=== PATIENT | male | born 1945 | race Caucasian/White ===

== ENCOUNTER 2018-04-22 07:28 | Day surgery (SDC) | payer MEDICARE ==
[2018-04-17 13:13] VITALS: BP 122/80
[2018-04-17 13:18] LABS: BASOPHILS % (AUTO) 0.4 % (0.0-5.0); EOSINOPHILS % (AUTO) 3.7 % (0.0-8.0); HEMATOCRIT 39.2 % (42-54); LYMPHOCYTES % (AUTO) 15.6 % (21.0-51.0); MEAN CORPUSCULAR HEMOGLOBIN 30.9 pg (27.0-33.0); MEAN CORPUSCULAR HGB CONC 33.5 g/dL (32.0-36.0); MEAN CORPUSCULAR VOLUME 92.1 fL (79-99); MONOCYTES % (AUTO) 11.1 % (3.0-13.0); NEUTROPHILS % (AUTO) 69.2 % (40.0-77.0); PLATELET COUNT (AUTO) 193 K/uL (130-400); RED BLOOD CELL COUNT(AUTO) 4.25 MIL/uL (4.50-6.20); RED CELL DISTRIBUTION WIDTH 14.8 % (11.0-15.5); WHITE BLOOD COUNT (AUTO) 6.1 K/uL (4.8-10.8)
[2018-04-17 13:25] LABS: CREATININE 1.4 mg/dL (0.5-1.5); POTASSIUM 4.3 mmol/L (3.5-5.1)
[2018-04-17 13:35] LABS: INR 2.58 (0.85-1.15); PARTIAL THROMBOPLASTIN TIME 35.8 SEC (26.3-35.5); PROTHROMBIN TIME 26.6 SEC (9.6-11.6)
[~2018-04-22] VITALS: Ht 185.4 cm; Wt 100.9 kg
[2018-04-22] VITALS (8 sets, daily range): BP systolic 105–141; BP diastolic 61–87
[~2018-04-22 07:28] MED LIST: ASCO10007 PO; ASPI-555 PO; DRON400T2 PO; FOLI1TAB85 PO; FURO40TA5 PO; LEVO88TA7 PO; LOSA25TA21 PO; ROSU20TA30 PO; WARF5TAB8 PO
[2018-04-22] MEDS ORDERED: SODIUM CHLORIDE 0.9% 1000ML 1,000 ML IV SCH (08:00)
[2018-04-22] MEDS ORDERED: DIPH25 PO (09:39)
[2018-04-22] MEDS ORDERED: ASPI-988 PO (09:39)
[2018-04-22] MEDS ORDERED: ACET-66 PO (09:39)
[2018-04-22] MEDS ORDERED: CALC500T7 PO (09:39)
== END 2018-04-22 12:05 | disposition home or self-care (01) ==
LOC: DAH 07:28
PROVIDERS: ATTEND Internal Medicine Cardiovascular Disease
DX: I48.0 Paroxysmal atrial fibrillation (principal); Z79.899 Other long term (current) drug therapy; I25.10 Atherosclerotic heart disease of native coronary artery without angina pectoris; Z95.1 Presence of aortocoronary bypass graft; E78.5 Hyperlipidemia, unspecified; K21.9 Gastro-esophageal reflux disease without esophagitis; I12.9 Hypertensive chronic kidney disease with stage 1 through stage 4 chronic kidney disease, or unspecified chronic kidney disease; N18.3 Chronic kidney disease, stage 3 (moderate); G72.9 Myopathy, unspecified; Z68.29 Body mass index [BMI] 29.0-29.9, adult
CPT/HCPCS: 36415; 80048; 85025; 85610; 85730; 92960; 93005 ×2; 99152; A4606

== ENCOUNTER → 2019-09-02 | Outpatient (CLI) | payer MEDICARE ==
[~2019-09-02] MED LIST changes: +ACET-66 PO; +ASPI-988 PO; +CALC500T7 PO; +DIPH25 PO; -LOSA25TA21 PO; +LOSA25TA41 PO; -ROSU20TA30 PO; +ROSU20TA31 PO
== END | disposition home or self-care (01) ==
LOC: SHCH 13:19
PROVIDERS: ATTEND Internal Medicine Cardiovascular Disease
DX: I65.23 Occlusion and stenosis of bilateral carotid arteries (principal); R01.1 Cardiac murmur, unspecified
CPT/HCPCS: 93880

== ENCOUNTER → 2020-12-20 | Outpatient (CLI) | payer MEDICARE ==
[~2020-12-20] MED LIST changes: +ASCO100031 PO; -ASCO10007 PO; -ASPI-555 PO; +ASPI-556 PO
== END | disposition home or self-care (01) ==
LOC: SHCH 12:59
PROVIDERS: ATTEND Internal Medicine Cardiovascular Disease
DX: I65.23 Occlusion and stenosis of bilateral carotid arteries (principal); I34.0 Nonrheumatic mitral (valve) insufficiency; I10 Essential (primary) hypertension; I25.5 Ischemic cardiomyopathy
CPT/HCPCS: 93306; 93356; 93880

== ENCOUNTER → 2023-07-15 | Outpatient (CLI) | payer MEDICARE ==
[~2023-07-15] MED LIST changes: -ASPI-988 PO; +ASPI1TAB7 PO; +DIPH-1242 PO; -DIPH25 PO; -DRON400T2 PO; +DRON400T7 PO; +REGADENOSON 0.4 MG/5 ML PF SYG IVP ONE; -ROSU20TA31 PO; +ROSU20TA73 PO
== END | disposition home or self-care (01) ==
LOC: SHCH 07:51
PROVIDERS: ATTEND Internal Medicine Cardiovascular Disease
DX: I25.10 Atherosclerotic heart disease of native coronary artery without angina pectoris (principal); Z79.899 Other long term (current) drug therapy; Z95.1 Presence of aortocoronary bypass graft
CPT/HCPCS: 78452; 96374; 93017; J2785; A9500 ×2

== ENCOUNTER → 2023-08-22 | Outpatient (CLI) | payer MEDICARE ==
[~2023-08-22] MED LIST changes: -ACET-66 PO; +ACET650O3 PO; +AEC81 PO; +APIX2.5T PO; -ASPI-556 PO; -CALC500T7 PO; +CHOL100053 PO; +CYAN50009 PO; -DIPH-1242 PO; +DIPH25CA53 PO; +DOXA8TAB81 PO; -DRON400T7 PO; +DUTA0.5C37 PO; +FERS325 PO; -FOLI1TAB85 PO; +FURO20TA4 PO; -FURO40TA5 PO; +METO-391 PO; +NITR0.4T50 SL; -REGADENOSON 0.4 MG/5 ML PF SYG IVP ONE; +TADA5TAB13 PO; -WARF5TAB8 PO; +ZINC50TA64 PO
== END | disposition home or self-care (01) ==
LOC: SHCH 11:20
PROVIDERS: ATTEND Internal Medicine Cardiovascular Disease
DX: I65.23 Occlusion and stenosis of bilateral carotid arteries (principal); I25.5 Ischemic cardiomyopathy
CPT/HCPCS: 93880

== ENCOUNTER → 2024-02-24 | Outpatient (CLI) | payer MEDICARE ==
[~2024-02-24] VITALS: Ht 185.4 cm; Wt 89.9 kg
[~2024-02-24] MED LIST changes: +ACET-2521 PO; +ASPI-1190 PO; -ASPI1TAB7 PO; +TAMS-1 PO; +WARF5TAB8 PO; +furosemide PO
[2024-02-24 11:41] LABS: BASOPHILS # (AUTO) 0.01 K/uL (0.00-0.20); BASOPHILS % (AUTO) 0.1 % (0.0-5.0); EOSINOPHILS # (AUTO) 0.01 K/uL (0.00-0.70); EOSINOPHILS % (AUTO) 0.1 % (0.0-8.0); HEMATOCRIT 40.6 % (42-54); IMMATURE GRANULOCYTE ABSOLUTE 0.04 K/uL (0-1); LYMPHOCYTES # (AUTO) 0.7 K/uL (1.0-4.8); LYMPHOCYTES % (AUTO) 6.9 % (21.0-51.0); MEAN CORPUSCULAR HEMOGLOBIN 32.2 pg (27.0-33.0); MEAN CORPUSCULAR VOLUME 94.9 fL (79-99); MONOCYTES # (AUTO) 1.1 K/uL (0.1-1.0); MONOCYTES % (AUTO) 11.8 % (3.0-13.0); NEUTROPHILS # (AUTO) 7.6 K/uL (1.8-7.7); NEUTROPHILS % (AUTO) 80.7 % (40.0-77.0); PLATELET COUNT (AUTO) 200 K/uL (130-400); RED BLOOD CELL COUNT(AUTO) 4.28 MIL/uL (4.50-6.20); WHITE BLOOD COUNT (AUTO) 9.4 K/uL (4.8-10.8)
[2024-02-24 11:48] LABS: CREATININE 1.6 mg/dL (0.5-1.3); POTASSIUM 4.8 mmol/L (3.5-5.1)
[2024-02-24 12:00] LABS: PARTIAL THROMBOPLASTIN TIME 52.2 SEC (26.3-35.5)
[2024-02-24 12:25] LABS: INR 4.12 (0.85-1.15); PROTHROMBIN TIME 43.8 SEC (9.6-11.6)
[2024-02-24 12:54] VITALS: BP 160/82; PULSE 75; RESP 19
== END | disposition home or self-care (01) ==
LOC: DAH 10:00 → EDSTATUS 10:00
PROVIDERS: ATTEND Internal Medicine Cardiovascular Disease
DX: Z01.818 Encounter for other preprocedural examination (principal); I48.0 Paroxysmal atrial fibrillation; I25.5 Ischemic cardiomyopathy; I48.92 Unspecified atrial flutter; R94.31 Abnormal electrocardiogram [ECG] [EKG]; Z79.82 Long term (current) use of aspirin; Z79.01 Long term (current) use of anticoagulants; Z79.899 Other long term (current) drug therapy
CPT/HCPCS: 36415; 80048; 85025; 85610; 85730; 93005

== ENCOUNTER 2024-03-09 08:12 | Day surgery (SDC) | payer MEDICARE ==
[2024-03-09] VITALS (9 sets, daily range): BP systolic 133–161; BP diastolic 61–78; PULSE 50–63; RESP 16–18
[~2024-03-09 08:12] MED LIST changes: -ACET650O3 PO; -AEC81 PO; -APIX2.5T PO; -CHOL100053 PO; -CYAN50009 PO; -DOXA8TAB81 PO; -DUTA0.5C37 PO; -FERS325 PO; -FURO20TA4 PO; -NITR0.4T50 SL; -TADA5TAB13 PO
[2024-03-09 08:45] LABS: BASOPHILS # (AUTO) 0.03 K/uL (0.00-0.20); BASOPHILS % (AUTO) 0.4 % (0.0-5.0); EOSINOPHILS # (AUTO) 0.15 K/uL (0.00-0.70); EOSINOPHILS % (AUTO) 1.8 % (0.0-8.0); HEMATOCRIT 35.9 % (42-54); IMMATURE GRANULOCYTE ABSOLUTE 0.03 K/uL (0-1); LYMPHOCYTES # (AUTO) 0.7 K/uL (1.0-4.8); LYMPHOCYTES % (AUTO) 9.1 % (21.0-51.0); MEAN CORPUSCULAR HEMOGLOBIN 31.6 pg (27.0-33.0); MEAN CORPUSCULAR HGB CONC 33.1 g/dL (32.0-36.0); MEAN CORPUSCULAR VOLUME 95.2 fL (79-99); MONOCYTES # (AUTO) 0.7 K/uL (0.1-1.0); MONOCYTES % (AUTO) 8.7 % (3.0-13.0); NEUTROPHILS # (AUTO) 6.5 K/uL (1.8-7.7); NEUTROPHILS % (AUTO) 79.6 % (40.0-77.0); PLATELET COUNT (AUTO) 260 K/uL (130-400); RED BLOOD CELL COUNT(AUTO) 3.77 MIL/uL (4.50-6.20); RED CELL DISTRIBUTION WIDTH 12.8 % (11.0-15.5); WHITE BLOOD COUNT (AUTO) 8.2 K/uL (4.8-10.8)
[2024-03-09 08:54] LABS: CREATININE 1.2 mg/dL (0.5-1.3); POTASSIUM 4.4 mmol/L (3.5-5.1)
[2024-03-09 08:55] LABS: INR <= 0.93 (0.85-1.15); PROTHROMBIN TIME 10.9 SEC (9.6-11.6)
[2024-03-09 08:57] LABS: PARTIAL THROMBOPLASTIN TIME 24.5 SEC (26.3-35.5)
[2024-03-09] MEDS ORDERED: LIDOCAINE HCL 1% MDV 50ML VIAL ONE (10:35)
[2024-03-09] MEDS ORDERED: MIDAZOLAM HCL 1 MG/ML 2ML VIAL ONE ×2 (10:35→10:56)
[2024-03-09] MEDS ORDERED: MEPERIDINE-PF 25 MG/ML SYG ONE ×2 (10:35→10:56)
[2024-03-09] MEDS ORDERED: CEFAZOLIN SODIUM 1 GM VIAL ONE (10:36)
[2024-03-09] MEDS ORDERED: BUPIVACAINE/PF 0.25% 30ML VIAL IJ ONE (10:36)
[2024-03-09] MEDS: CEFAZOLIN SODIUM 1 GM VIAL IVPB ONE (15:25)
== END 2024-03-09 16:05 | disposition home or self-care (01) ==
LOC: DAH 08:12
PROVIDERS: ATTEND Internal Medicine Cardiovascular Disease
DX: Z45.02 Encounter for adjustment and management of automatic implantable cardiac defibrillator (principal); I25.5 Ischemic cardiomyopathy; I48.0 Paroxysmal atrial fibrillation; I47.20 Ventricular tachycardia, unspecified; I13.0 Hypertensive heart and chronic kidney disease with heart failure and stage 1 through stage 4 chronic kidney disease, or unspecified chronic kidney disease; N18.30 Chronic kidney disease, stage 3 unspecified; I50.42 Chronic combined systolic (congestive) and diastolic (congestive) heart failure; E78.5 Hyperlipidemia, unspecified; K21.9 Gastro-esophageal reflux disease without esophagitis; E03.9 Hypothyroidism, unspecified; Z79.899 Other long term (current) drug therapy; Z95.5 Presence of coronary angioplasty implant and graft; Z98.890 Other specified postprocedural states
CPT/HCPCS: 33264; 80048; 85025; 85610; 85730; 36415; C1882; J0690 ×2; J0665; J2250 ×2; J2175 ×2; J3490; A4215; A4222; A4221; A4663; A4216; A4606; A4223 ×3; 99156; 99157

== ENCOUNTER 2025-09-13 19:38 | Inpatient (IN) | payer MEDICARE ==
[~2025-09-13] VITALS: Ht 188 cm; Wt 84.0 kg
[~2025-09-13 19:38] MED LIST changes: -ASCO100031 PO; +ASCO10004 PO; -ROSU20TA73 PO; +ROSU20TA98 PO; -TAMS-1 PO; +TAMS-55 PO
--- NOTE | 2025-09-13 19:57 | NUR ---
PT CARE ASSUMED AT THIS TIME
[2025-09-13 20:14] LABS: IMMATURE GRANULOCYTE ABSOLUTE 0.03 K/uL (0-1); NUCLEATED RED BLOOD CELLS 0.0 % (0.0-0.19); PLATELET COUNT (AUTO) 254 K/uL (130-400); RED BLOOD CELL COUNT(AUTO) 4.20 MIL/uL (4.50-6.20); RED CELL DISTRIBUTION WIDTH 16.1 % (11.0-15.5); WHITE BLOOD COUNT (AUTO) 5.9 K/uL (4.8-10.8)
[2025-09-13 20:22] LABS: CREATININE 1.8 mg/dL (0.5-1.3); GLOMERULAR FILTR. RATE CALC 38.0 mL/min (>90); GLUCOSE,RANDOM 92.0 mg/dL (70-105); SODIUM SERUM 143.0 mmol/L (136-145); UREA NITROGEN, BLOOD 25.0 mg/dL (7-18)
--- NOTE | 2025-09-13 20:24 | ERN ---
General Chief Complaint: Weakness Stated Complaint: C/O WEAKNESS WITH SOB Time Seen by MD: 19:40 History of Present Illness Initial Comments 80-year-old male with a past medical history of bladder cancer treated with chemotherapy and radiation that ended about a year ago. Since then family has noticed that the patient has had increasing weakness shortness of breath and his sleeping being interrupted with shortness of breath. In addition he has swollen ankles despite taking diuretics. Patient has a history of CABG. Allergies: Coded Allergies: No Known Drug Allergies (Unverified Allergy, Unknown, 01/10/16) Home Meds Reported Medications Acetaminophen (Arthritis Pain Relief) 650 Mg Tablet.er, 650 MG PO AD PRN for PAIN, TAB 02/24/24 Aspirin/Acetaminophen/Caffeine (Excedrin Extra Strength Caplet) 250 Mg-250 Mg-65 Mg Tablet, 1 EACH PO AM, TAB 02/24/24 Tamsulosin HCl (Flomax) 0.4 Mg Cap.er.24h, 0.8 MG PO HS, CAPSULE. 02/24/24 [furosemide] No Conflict Check, 10 MG PO AM 02/24/24 Warfarin Sodium (Jantoven) 5 Mg Tablet, 5 MG PO HS, TAB 02/24/24 Levothyroxine Sodium (Levothyroxine Sodium) 88 Mcg Tablet, 88 MCG PO HS, TAB 08/21/23 Rosuvastatin Calcium (Rosuvastatin Calcium) 20 Mg Tablet, 20 MG PO HS, TAB 08/21/23 Ascorbic Acid (Vitamin C) 1,000 Mg Tablet, 1000 MG PO DAILY, TAB 08/21/23 Zinc Amino Acid Chelate (Zinc) 50 Mg Tablet, 50 MG PO QODAY, TAB TUE/EZRA/SAT/SUN 08/21/23 Diphenhydramine HCl (Diphenhydramine HCl) 25 Mg Capsule, 25 MG PO AD PRN for antihystermmine, CAP 08/21/23 Metoprolol Succinate (Metoprolol Succinate) 50 Mg Tab.er.24h, 50 MG PO HS, TAB 08/21/23 Losartan Potassium (Losartan Potassium) 25 Mg Tablet, 12.5 MG PO HS, TAB 08/21/23 Past Medical History Past Medical History: High Cholesterol, Hypertension, Hypothyroid, Other Medical History Other: VERTIGO; HX OF INCONTINENCE Past Surgical History: Pacer/AICD, Other Surgical History Other: OPEN HEART SX (1990) Constitutional: (-) chills, (-) diaphoresis, (-) fever, (-) malaise, (-) weakness, (-) other documentation EENTM: (-) eye pain, (-) blurred vision, (-) tearing, (-) double vision, (-) ear pain, (-) ear discharge, (-) nose pain, (-) nose congestion, (-) throat pain, (-) Throat swelling, (-) mouth pain, (-) tooth pain, (-) mouth swelling, (-) other documentation Respiratory: (+) orthopnea Cardiovascular: (+) edema Gastrointestinal/Abdominal: (-) nausea, (-) vomiting, (-) diarrhea, (-) abdominal pain, (-) abdominal distention, (-) constipation, (-) rectal bleeding, (-) dark stool/melena, (-) other documentation Genitourinary: (-) penile discharge, (-) dysuria, (-) frequency, (-) hematuria, (-) pain, (-) other documentation Musculoskeletal: (-) Neck pain, (-) back pain, (-) Flank Pain, (-) joint pain, (-) joint swelling, (-) muscle pain, (-) muscle stiffness, (-) gout, (-) other documentation Physical Exam General Appearance: (+) mild distress Orientation: (+) alert Head/Face Trauma: No Eye: bilateral eye normal inspection, bilateral eye PERRL, bilateral eye EOMI Ear, Nose, Throat: (+) hearing grossly normal, (+) normal ENT inspection, (+) moist mucous membraine Neck: (+) normal inspection, (+) supple, (+) full range of motion Respiratory: (+) chest non-tender, (+) lungs clear, (+) decreased breath sounds Heart: (+) regular, (+) no gallop Vascular: (+) edema Gastrointestinal: (+) soft, (+) non-tender, (+) bowel sound present Results Laboratory and Microbiology Lab and Micro Result Laboratory Tests Test 09/13/25 20:07 09/13/25 21:00 White Blood Count 5.9 K/uL (4.8-10.8) Red Blood Count 4.20 MIL/uL (4.50-6.20) L Hemoglobin 13.0 g/dL (14.0-18.0) L Hematocrit 38.6 % (42-54) L Mean Corpuscular Volume 91.9 fL (79-99) Mean Corpuscular Hemoglobin 31.0 pg (27.0-33.0) Mean Corpuscular Hemoglobin Concent 33.7 g/dL (32.0-36.0) Red Cell Distribution Width 16.1 % (11.0-15.5) H Platelet Count 254 K/uL (130-400) Mean Platelet Volume 8.9 fL (7.5-10.5) Immature Granulocyte % (Auto) 0.5 % (0-1) Neutrophils (%) (Auto) 78.4 % (40.0-77.0) H Lymphocytes (%) (Auto) 9.1 % (21.0-51.0) L Monocytes (%) (Auto) 10.6 % (3.0-13.0) Eosinophils (%) (Auto) 1.2 % (0.0-8.0) Basophils (%) (Auto) 0.2 % (0.0-5.0) Neutrophils # (Auto) 4.6 K/uL (1.8-7.7) Lymphocytes # (Auto) 0.5 K/uL (1.0-4.8) L Monocytes # (Auto) 0.6 K/uL (0.1-1.0) Eosinophils # (Auto) 0.07 K/uL (0.00-0.70) Basophils # (Auto) 0.01 K/uL (0.00-0.20) Absolute Immature Granulocyte (auto 0.03 K/uL (0-1) Nucleated Red Blood Cells 0.0 % (0.0-0.19) White Cell Morphology Comment See comments Sodium Level 143 mmol/L (136-145) Potassium Level 4.1 mmol/L (3.5-5.1) Chloride Level 104 mmol/L (101-111) Carbon Dioxide Level 29 mmol/L (21-32) Blood Urea Nitrogen 25 mg/dL (7-18) H Creatinine 1.8 mg/dL (0.5-1.3) H Glomerular Filtration Rate Calc 38 mL/min (>90) Random Glucose 92 mg/dL (70-105) Total Calcium 9.0 mg/dL (8.5-10.1) Total Bilirubin 1.2 mg/dL (0.2-1.0) H Aspartate Amino Transf (AST/SGOT) 63 U/L (10-37) H Alanine Aminotransferase (ALT/SGPT) 67 U/L (12-78) Alkaline Phosphatase 114 U/L (50-136) Troponin I High Sensitivity 30 ng/L (4-75) B-Type Natriuretic Peptide 931 pg/mL (0-100) H Total Protein 5.9 g/dL (6.0-8.3) L Albumin 3.4 g/dL (3.5-5.0) L Urine Color COLORLESS (YELLOW) Urine Appearance CLOUDY (CLEAR) H Urine pH 5.5 (5.0-8.0) Urine Specific [place] 1.007 (1.001-1.031) Urine Protein NEGATIVE mg/dL (NEGATIVE) Urine Glucose (UA) NEGATIVE mg/dL (NEGATIVE) Urine Ketones NEGATIVE mg/dL (NEGATIVE) Urine Occult Blood NEGATIVE (NEGATIVE) Urine Nitrate NEGATIVE (NEGATIVE) Urine Bilirubin NEGATIVE mg/dL (NEGATIVE) Urine Urobilinogen 0.2 mg/dL (0.2-1.0) Urine Leukocyte Esterase NEGATIVE Nany/uL Urine RBC 0-1 /HPF (0-1) Urine WBC 0-1 /HPF (0-1) Urine Bacteria None /HPF (None Seen) Labs Reviewed?: Yes EKG/XRAY/US/CT/MRI EKG: (+) rhythm (Ventricularly paced), (+) LVH Ultrasound Comment Patient's IVC measured and it is extremely pump greater than 3 cm. MDM MDM: Differential diagnosis: CHF, AMI, cardiotoxicity from radiation and chemotherapy, dehydration, Rationale: Tests considered and ordered secondary to shared decision making include: Previous outside records reviewed: Old ER visits. Risk of complication and/or morbidity or mortality of patient management: None Medications-Per medication reconciliation Need for hospitalization: Patient does meet criteria for hospitalization. Need for emergency major/minor surgery: No There are no social concerns with this patient. Prescription drug management Prescriptions will include symptomatic care Patient's prior external medical records from other ER visits were reviewed by me as indicated. Prior testing and results from previous visits were reviewed. Prior tests were taken into account with medical decision making and resource utilization, independent historian/historians were used to obtain complete medical history. I independently interpreted the test that were performed, results were reviewed by me and considered findings on radiology if ordered. Patient's chest x-ray shows a little effusion his BNP is elevated and he also shows some signs of kidney injury. I have given him a mg of Bumex. I have called the hospitalist service and they have agreed to admit him. ED Course Orders Procedure Category Date Status Time 12 Lead Ekg Tracing- EKG 09/13/25 Complete Technical 19:53 B-Type Natriuretic LAB 09/13/25 Complete Peptide 19:53 Cbc With Differential LAB 09/13/25 Complete 19:53 Comprehensive LAB 09/13/25 Complete Metabolic Panel 19:53 Troponin I High LAB 09/13/25 Complete Sensitivity 19:53 Urinalysis Profile LAB 09/13/25 Complete 19:53 Chest 1vw RAD 09/13/25 Resulted 19:53 Bumetanide 1mg/4ml PHA 09/13/25 Complete Vial (Bumex 1mg Vial) 21:00 Ct Head/Brain W/O CT 09/13/25 Taken Contrast 21:02 Current Medications Medications (Trade) Dose Ordered Sig/Lacy Route PRN Reason Start Time Stop Time Status Last Admin Dose Admin Bumetanide (Bumex 1mg Vial) 1 mg ONCE ONCE IVP 09/13/25 21:00 09/13/25 21:01 DC 09/13/25 22:09 Vital Signs Date Time Temp Pulse Resp B/P (MAP) Pulse Ox O2 Delivery O2 Flow Rate FiO2 09/13/25 20:09 96.6 61 17 147/94 98 Room Air* 0 21 09/13/25 19:40 96.6 68 20 141/91 96 Room Air DX & DISP Disposition: Inpatient Departure Impression: Primary Impression: CHF (congestive heart failure) Condition: Stable Referrals: TATO ERICKSON MD (PCP) SU MATHIAS MD Sep 13, 2025 20:24
[2025-09-13 20:33] LABS: ASPARTATE AMINOTRANSFERASE 63.0 U/L (10-37); TOTAL PROTEIN, SERUM 5.9 g/dL (6.0-8.3)
--- NOTE | 2025-09-13 20:47 | EKG ---
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
[2025-09-13 21:07] LABS: APPEARANCE,URINE CLOUDY (CLEAR); GLUCOSE, URINE (UA) NEGATIVE (NEGATIVE); LEUKOCYTE ESTERASE ,URINE NEGATIVE Leu/uL (NEGATIVE); NITRATE,URINE NEGATIVE (NEGATIVE); OCCULT BLOOD,URINE NEGATIVE (NEGATIVE)
[2025-09-13 21:09] LABS: ADD UA MICROSCOPIC YES
[2025-09-13] MEDS: BUMETANIDE 1MG/4ML VIAL IVP ONE (22:09)
--- NOTE | 2025-09-13 22:13 | HMCIMG ---
EXAM: CR Chest, 1 view CLINICAL HISTORY: Shortness of breath. COMPARISON: None provided. FINDINGS: Mildly blunted bilateral CP angles, concerning for small pleural effusion or pleural thickening. Mild bibasilar atelectasis. Mild cardiomegaly. Status poststernotomy. Right side cardiac pacemaker device in place. No pneumothorax. No acute osseous abnormality. IMPRESSION: Mildly blunted bilateral CP angles, concerning for small pleural effusion or pleural thickening. Mild bibasilar atelectasis. Mild cardiomegaly. Status poststernotomy. Right side cardiac pacemaker device in place. /[place]
--- NOTE | 2025-09-13 22:40 | HP ---
[facility] HISTORY [facility] PHYSICAL Date of Service: Sep 13, 2025 Time of Service: 22:40 PCP: John Rogel HISTORY OF PRESENT ILLNESS: This is a 80-year-old past medical history of prostate cancer with chemotherapy and radiation, hyperlipidemia, hypertension, hypothyroidism, CHF/ PPM, coronary artery disease with cardiac stent x1 and CABG x4 who presented to the ED for complaints of shortness of breath,generalized body weakness,dizziness ,increased confusion and edema to both lower extremities which started x 2 days.As per son patient has not been able to sleep for about 2 nights due to shortness of breath and he noticed he started getting weaker and throughout the day he has on and off confusion so they decided to bring him tot he eD for evaluation. Seen and examined patient in the ER awake,alert and oriented x 3 with occasional forgetfulness and patient ambulates with assistance. Patient denies fever, cough, nausea, vomiting, chest pain, palpitation and abdominal pain. Latest vital signs temperature 97.3, heart rate 64, blood pressure 154/74 saturation 95% on room air. Labs: Hemoglobin 13, hematocrit 38, platelet count 254. BUN 25, creatinine 1.8, GFR 38, total bili 1.2, AST 63 troponin 30 BNP 931 albumin 3.4 chest x-ray result revealed mildly blunted bilateral costophrenic angles concerning for small pleural effusion or pleural thickening. Mild bibasilar atelectasis. Mild cardiomegaly. Status post sternotomy. Right-sided cardiac pacemaker device in place. CT head without contrast result revealed no acute in tracranial abnormality is present. If the clinical concern persists recommend MRI of the brain, including DWI for further evaluation. Diffuse cerebral atrophy with chronic small-vessel ischemic changes. Focal gliosis in the right occipital lobe may correlate with prior ischemic or post inflammatory insult. Mild mucosal disease in the bilateral maxillary sinuses. While in the ER patient received Bumex 1 mg IV. We will admit patient for further medical management. REVIEW OF SYSTEMS CONSTITUTIONAL: Denies fevers, chills, or night sweats. No unintentional weight loss reported. NEUROLOGICAL: Complaints of weakness, dizziness and confusion Denies headache, amaurosis fugax, sensory deficit, gait abnormalities, or tremors. ENT: No hearing loss, otalgia, otorrhea, rhinitis, rhinorrhea, hoarseness, or sore throat. CARDIOVASCULAR: Denies any exertional angina, dyspnea on exertion, orthopnea, p aroxysmal nocturnal dyspnea, palpitations, life-threatening arrhythmias, claudication. PULMONARY: Complains of shortness of breaths Denies cough, phlegm/sputum, hemoptysis, pleuritic chest pain. SLEEP: Denies morning headaches, daytime somnolence or napping. Denies difficulty falling asleep, staying asleep, waking from sleep. Denies knowledge of snoring. GASTROINTESTINAL: Denies any type of dysphagia to either liquids or solids. Denies nausea, vomiting, pyrosis, early satiety, abdominal pain, diarrhea, constipation, or changes in stool consistency or caliber. Denies coffee-ground emesis, hematemesis, hematochezia, or melanotic stools. GENITOURINARY: Denies frequency, urgency, nocturia, hematuria or incontinence (Storage/Irritative symptoms.) Low urinary stream, straining to void, urinary intermittency or hesitancy, splitting of the voiding stream, terminal dribbling. ENDOCRINOLOGIC: Denies polyuria, polydipsia, polyphagia or heat/cold intolerances. HEMATOLOGIC: Denies thrombophilia/previous clots, or coagulopathy/bleeding disorders. ONCOLOGIC: Denies personal history of malignancy. DERMATOLOGIC: Denies rashes or pruritus. PSYCHIATRIC: Denies any suicidal or homicidal ideation. Denies hallucinations. PAST MEDICAL HISTORY: [ prostate cancer with chemotherapy and radiation, hyperlipidemia, hypertension, hypothyroidism, CHF/ PPM, coronary artery disease with cardiac stent x1 and CABG x4 ] PAST SURGICAL HISTORY: [ CABG x4, cardiac stent x1 ppm, bilateral knee repair [id number] bilateral shoulder repair secondary to rotator cuff ] PAST SOCIAL HISTORY: [ Patient lives with . Patient denies cigarette and recreational drug use admits to social drink one glass of wine a/month ] FAMILY HISTORY: [ Alzheimer's disease, cardiovascular disease, hypertension and Chronic obstructive pulmonary disease ] Coded Allergies: No Known Drug Allergies (Unverified Allergy, Unknown, 01/10/16) PHYSICAL EXAM GENERAL APPEARANCE: The patient is awake, alert, and oriented, in no acute cardiopulmonary distress. NEUROLOGICAL: Cranial nerves II-XII grossly intact. Motor is 5/5 in bilateral upper and lower extremities proximal to distal. No sensory deficits. HEENT: Face is symmetric. Pupils are equal and reactive. Extraocular movements are intact. NECK: Supple. No JVD. No thyromegaly. No submental, submandibular, pre- /postauricular, occipital or supraclavicular lymphadenopathy. CHEST: Normal chest expansion. No Telemetry. LUNGS: Absence of any rales, rhonchi or any wheezing. CARDIOVASCULAR: Regular. S1 and S2 normal. No appreciable rubs, murmurs or gallops. ABDOMEN: Soft, nontender, and nondistended. There is no rebound, voluntary guarding, or rigidity. : Deferred. No [place]agher. EXTREMITIES: +edema to bilateral lower extremities No clubbing. Good capillary refill. SKIN: No skin breakdown. Vital Sign (Last 24 Hours) 09/13/25 20:09 Temp 96.6 Pulse 61 Resp 17 B/P (MAP) 147/94 Pulse Ox 98 O2 Delivery Room Air* O2 Flow Rate 0 FiO2 21 LABS: Laboratory: Test 09/13/25 21:00 09/13/25 20:07 Range/Units Urine Color COLORLESS YELLOW Urine Appearance CLOUDY H CLEAR Urine pH 5.5 5.0-8.0 Urine Specific [place] 1.007 1.001-1.031 Urine Protein NEGATIVE NEGATIVE mg/dL Urine Glucose (UA) NEGATIVE NEGATIVE mg/dL Urine Ketones NEGATIVE NEGATIVE mg/dL Urine Occult Blood NEGATIVE NEGATIVE Urine Nitrate NEGATIVE NEGATIVE Urine Bilirubin NEGATIVE NEGATIVE mg/dL Urine Urobilinogen 0.2 0.2-1.0 mg/dL Urine Leukocyte Esterase NEGATIVE NEGATIVE Nany/uL Urine RBC 0-1 0-1 /HPF Urine WBC 0-1 0-1 /HPF Urine Bacteria None None Seen /HPF White Blood Count 5.9 4.8-10.8 K/uL Red Blood Count 4.20 L 4.50-6.20 MIL/uL Hemoglobin 13.0 L 14.0-18.0 g/dL Hematocrit 38.6 L 42-54 % Mean Corpuscular Volume 91.9 79-99 fL Mean Corpuscular Hemoglobin 31.0 27.0-33.0 pg Mean Corpuscular Hemoglobin Concent 33.7 32.0-36.0 g/dL Red Cell Distribution Width 16.1 H 11.0-15.5 % Platelet Count 254 130-400 K/uL Mean Platelet Volume 8.9 7.5-10.5 fL Immature Granulocyte % (Auto) 0.5 0-1 % Neutrophils (%) (Auto) 78.4 H 40.0-77.0 % Lymphocytes (%) (Auto) 9.1 L 21.0-51.0 % Monocytes (%) (Auto) 10.6 3.0-13.0 % Eosinophils (%) (Auto) 1.2 0.0-8.0 % Basophils (%) (Auto) 0.2 0.0-5.0 % Neutrophils # (Auto) 4.6 1.8-7.7 K/uL Lymphocytes # (Auto) 0.5 L 1.0-4.8 K/uL Monocytes # (Auto) 0.6 0.1-1.0 K/uL Eosinophils # (Auto) 0.07 0.00-0.70 K/uL Basophils # (Auto) 0.01 0.00-0.20 K/uL Absolute Immature Granulocyte (auto 0.03 0-1 K/uL Nucleated Red Blood Cells 0.0 0.0-0.19 % White Cell Morphology Comment See comments Sodium Level 143 136-145 mmol/L Potassium Level 4.1 3.5-5.1 mmol/L Chloride Level 104 101-111 mmol/L Carbon Dioxide Level 29 21-32 mmol/L Blood Urea Nitrogen 25 H 7-18 mg/dL Creatinine 1.8 H 0.5-1.3 mg/dL Glomerular Filtration Rate Calc 38 >90 mL/min Random Glucose 92 70-105 mg/dL Total Calcium 9.0 8.5-10.1 mg/dL Total Bilirubin 1.2 H 0.2-1.0 mg/dL Aspartate Amino Transf (AST/SGOT) 63 H 10-37 U/L Alanine Aminotransferase (ALT/SGPT) 67 12-78 U/L Alkaline Phosphatase 114 50-136 U/L Troponin I High Sensitivity 30 4-75 ng/L B-Type Natriuretic Peptide 931 H 0-100 pg/mL Total Protein 5.9 L 6.0-8.3 g/dL Albumin 3.4 L 3.5-5.0 g/dL DIAGNOSTICS / RADIOLOGY: [ ] ASSESSMENT: Acute on chronic decompensated heart failure POA Acute kidney injury on chronic kidney disease POA Uncontrolled hypertension POA Chronic anemia on CKD POA Focal gliosis in the right occipital lobe may correlate with prior ischemic or post inflammatory insult per CT POA Coronary artery disease with cardiac stent x1 and CABG x4 POA Cardiac permanent pacemaker status POA Elevated bilirubin and elevated AST POA History of atrial fibrillation on warfarin POA PLAN: We will admit patient in medical telemetry We will start on heart healthy diet We will start on Lasix 20 mg IV b.i.d. We will start famotidine 20 mg p.o. daily for GI prophylaxis We will replace electrolytes as needed per protocol We will add prn medication for fever,pain,cough , nausea and vomiting We will reconcile home meds once medlist available Daily weight and strict I&O We will restrict fluid 1.5 L per day We will seek Nephrology consultation We will seek Cardiology consultation We will obtain echocardiogram We will request labs in am Further orders to follow depending on above results Case discussed with attending physician and came up with above treatment and plan of care. ADVANCED CARE PLANNING 1. Which of the following were discussed? Hospice Care - No Therapeutic options - Yes Advance Directives - No Other discussions - 2. Discussed with who? Patient and son 3. Voluntary nature of this service was explained to the patient? Yes 4. Amount of time spent - __24 min 5. Reviewed by Physician? (if this service was performed by NPP) Yes Patient seen and examined by me. Agree with note by RN TRAINING SEE ADDITIONAL ORDERS PER CHART DISCUSSED WITH NURSING STAFF LEONIDES MANTILLAP Sep 13, 2025 22:40
--- NOTE | 2025-09-13 23:43 | HMCIMG ---
EXAM: CT Head Without IV contrast. CLINICAL HISTORY: Patient presents with decreased mental status. TECHNIQUE: Axial computed tomography images of the head/brain acquired without intravenous contrast. COMPARISON: None provided. FINDINGS: BRAIN: No acute hemorrhage, mass lesion, or acute territorial infarct. Diffuse cerebral atrophy with prominence of the cortical sulci, bilateral sylvian fissures, and basal cisterns. Ill-defined hypodensities in the bilateral periventricular white matter, gangliocapsular regions, and midbrain, consistent with chronic small vessel ischemic changes. Focal area of gliosis involving the right occipital lobe. VENTRICLES: Mild compensatory dilatation of the lateral ventricles, consistent with volume loss. No midline shift or extra-axial collection. ORBITS: Unremarkable. SINUSES AND MASTOIDS: Mild peripheral mucosal thickening of the bilateral maxillary sinuses. Mastoid air cells are clear. BONES: No calvarial fracture. IMPRESSION: No acute intracranial abnormality is present. If the clinical concern persists, recommend an MRI of the brain, including DWI, for further evaluation. Diffuse cerebral atrophy with chronic small vessel ischemic changes. Focal gliosis in the right occipital lobe may correlate with prior ischemic or post-inflammatory insult. Mild mucosal disease in the bilateral maxillary sinuses. /[place]
[2025-09-14] VITALS (18 sets, daily range): BP systolic 126–156; BP diastolic 69–95; PULSE 53–74; RESP 18–20; TEMP 96.2–98.1; O2SAT 93–98
[2025-09-14] MEDS ORDERED: NITROGLYCERIN 0.4 MG SL TAB SL PRN
--- NOTE | 2025-09-14 01:55 | NUR ---
REPORT GIVEN TO ZA FRAZIER AT THIS TIME
--- NOTE | 2025-09-14 02:15 | NUR ---
ADMISSION NOTE PATIENT ARRIVED VIA STRETCHER ALERT AND ORIENTED X 4, SON AT SIDE. PATIENT ABLE TO TRANSFER SELF FROM STRETCHER TO BED WITH ASSIST, NOTED UNSTEADY GAIT AT THIS TIME. PATIENT WEIGHED ON STANDING SCALE WITH ASSIST. DENIES PAIN AT THIS TIME. PATIENT LUNG SOUNDS ARE CLEAR ON AUSCULTATION, NOTED BILATERAL LOWER EXTREMITIES WITH PITTING EDEMA +2. ABDOMEN NON DISTENDED, NON TENDER, HYPOACTIVE ALL FOUR QUADRANTS. STATED LAST BM 3 DAYS AGO. DENIES NAUSEA AND VOMITING. PATIENT ARRIVED WITH EXTRA CLOTHING, BLUE TENNIS SHOES. NO CELL PHONE NOTED. PLAN OF CARE DISCUSSED WITH PATIENT AND SON AT BEDSIDE, PATIENT AND SON ORIENTED TO ROOM, CALL BUTTON, VISITING HOURS, TV, FLUID RESTRICTION OF 1.5 LITERS, FALL PREVENTION PROTOCOL, BED ALARM. CALL BUTTON PLACED WITHIN REACH, PROVIDED PATIENT WITH WATER, APPLIED SCD'S ORDERED.
--- NOTE | 2025-09-14 03:46 | NUR ---
HOME MEDICATIONS SON STATED PATIENTS WILL BRING MEDICATIONS IN TOMORROW. PATIENT DOES NOT HAVE ANY HOME MEDICATIONS AT THIS TIME, AND UNABLE TO RECALL DOSES OF MEDICATIONS. PER PATIENT IS TAKING WARFARIN BUT DOES NOT KNOW DOSAGES.
[2025-09-14 05:37] LABS: IMMATURE GRANULOCYTE ABSOLUTE 0.02 K/uL (0-1); NUCLEATED RED BLOOD CELLS 0.0 % (0.0-0.19); PLATELET COUNT (AUTO) 266 K/uL (130-400); RED BLOOD CELL COUNT(AUTO) 4.61 MIL/uL (4.50-6.20); RED CELL DISTRIBUTION WIDTH 16.3 % (11.0-15.5); WHITE BLOOD COUNT (AUTO) 5.8 K/uL (4.8-10.8)
[2025-09-14 06:01] LABS: ASPARTATE AMINOTRANSFERASE 62 U/L (10-37); CREATININE 1.9 mg/dL (0.5-1.3); GLOMERULAR FILTR. RATE CALC 36 mL/min (>90); GLUCOSE,RANDOM 97 mg/dL (70-105); SODIUM SERUM 143 mmol/L (136-145); TOTAL PROTEIN, SERUM 6.2 g/dL (6.0-8.3); UREA NITROGEN, BLOOD 25 mg/dL (7-18)
[2025-09-14] MEDS: FAMOTIDINE 20MG TAB PO SCH (09:16)
--- NOTE | 2025-09-14 09:41 | NUR ---
DCP:HOME Pt currently lives at home with his Jacqui Jordan [phone]. pt does not have any DME, home health, or provider services. pt states that he is able to complete ADLs independently. PCP is Dr. Juan F Lopez and uses [facility]'s pharmacy for any RX needs. At NH pt will want to go home and family can assist with transportation. Addendum: 09/14/25 at 0943 by DANIELLE FUENTES SS Amended: Links added.
[2025-09-14] MEDS ORDERED: PoTASSium chl 10% ELIXIR 20MEQ 20 MEQ/15 ML UDCUP PO PRN (10:00)
--- NOTE | 2025-09-14 10:31 | PN ---
[facility] PROGRESS NOTE Date of Service: Sep 14, 2025 Time of Service: 10:15 SUBJECTIVE: [ ] This is a 80-year-old past medical history of prostate cancer with chemotherapy and radiation, hyperlipidemia, hypertension, hypothyroidism, CHF/ PPM, coronary artery disease with cardiac stent x1 and CABG x4 who presented to the ED for complaints of shortness of breath,generalized body weakness,dizziness ,increased confusion and edema to both lower extremities which started x 2 days.As per son patient has not been able to sleep for about 2 nights due to shortness of breath and he noticed he started getting weaker and throughout the day he has on and off confusion so they decided to bring him tot he eD for evaluation. 09/14/25 Patient is seen and examined. He is currently on room air continues with edematous to lower extremity instructed patient on fluid restriction waiting for service correspondent's input. Echo was done pending results REVIEW OF SYSTEMS CONSTITUTIONAL: Denies fevers, chills, or night sweats. No unintentional weight loss reported. NEUROLOGICAL: Complaints of weakness, dizziness and confusion Denies headache, amaurosis fugax, sensory deficit, gait abnormalities, or tremors. ENT: No hearing loss, otalgia, otorrhea, rhinitis, rhinorrhea, hoarseness, or sore throat. CARDIOVASCULAR: Denies any exertional angina, dyspnea on exertion, orthopnea, paroxysmal nocturnal dyspnea, palpitations, life-threatening arrhythmias, claudication. PULMONARY: Complains of shortness of breaths Denies cough, phlegm/sputum, hemoptysis, pleuritic chest pain. SLEEP: Denies morning headaches, daytime somnolence or napping. Denies difficulty falling asleep, staying asleep, waking from sleep. Denies knowledge of snoring. GASTROINTESTINAL: Denies any type of dysphagia to either liquids or solids. Denies nausea, vomiting, pyrosis, early satiety, abdominal pain, diarrhea, constipation, or changes in stool consistency or caliber. Denies coffee-ground emesis, hematemesis, hematochezia, or melanotic stools. GENITOURINARY: Denies frequency, urgency, nocturia, hematuria or incontinence (Storage/Irritative symptoms.) Low urinary stream, straining to void, urinary intermittency or hesitancy, splitting of the voiding stream, terminal dribbling. ENDOCRINOLOGIC: Denies polyuria, polydipsia, polyphagia or heat/cold intolerances. HEMATOLOGIC: Denies thrombophilia/previous clots, or coagulopathy/bleeding disorders. ONCOLOGIC: Denies personal history of malignancy. DERMATOLOGIC: Denies rashes or pruritus. PSYCHIATRIC: Denies any suicidal or homicidal ideation. Denies hallucinations. PHYSICAL EXAM GENERAL APPEARANCE: The patient is awake, alert, and oriented, in no acute cardiopulmonary distress. NEUROLOGICAL: Cranial nerves II-XII grossly intact. Motor is 5/5 in bilateral upper and lower extremities proximal to distal. No sensory deficits. HEENT: Face is symmetric. Pupils are equal and reactive. Extraocular movements are intact. NECK: Supple. No JVD. No thyromegaly. No submental, submandibular, pre- /postauricular, occipital or supraclavicular lymphadenopathy. CHEST: Normal chest expansion. No Telemetry. LUNGS: Absence of any rales, rhonchi or any wheezing. CARDIOVASCULAR: Regular. S1 and S2 normal. No appreciable rubs, murmurs or gallops. ABDOMEN: Soft, nontender, and nondistended. There is no rebound, voluntary guarding, or rigidity. : Deferred. No Gallagher. EXTREMITIES: +edema to bilateral lower extremities No clubbing. Good capillary refill. SKIN: No skin breakdown. Vital Signs (last 8hr) Date Time Temp Pulse Resp B/P (MAP) Pulse Ox O2 Delivery O2 Flow Rate FiO2 09/14/25 06:45 60 18 09/14/25 06:44 60 18 N/A Room Air 21 09/14/25 02:41 Room Air* 0 21 LABS: Laboratory: Test 09/14/25 05:28 09/13/25 21:00 09/13/25 20:07 Range/Units White Blood Count 5.8 4.8-10.8 K/uL Red Blood Count 4.61 4.50-6.20 MIL/uL Hemoglobin 14.0 14.0-18.0 g/dL Hematocrit 43.9 42-54 % Mean Corpuscular Volume 95.2 79-99 fL Mean Corpuscular Hemoglobin 30.4 27.0-33.0 pg Mean Corpuscular Hemoglobin Concent 31.9 L 32.0-36.0 g/dL Red Cell Distribution Width 16.3 H 11.0-15.5 % Platelet Count 266 130-400 K/uL Mean Platelet Volume 9.0 7.5-10.5 fL Immature Granulocyte % (Auto) 0.3 0-1 % Neutrophils (%) (Auto) 75.1 40.0-77.0 % Lymphocytes (%) (Auto) 10.8 L 21.0-51.0 % Monocytes (%) (Auto) 11.6 3.0-13.0 % Eosinophils (%) (Auto) 1.9 0.0-8.0 % Basophils (%) (Auto) 0.3 0.0-5.0 % Neutrophils # (Auto) 4.3 1.8-7.7 K/uL Lymphocytes # (Auto) 0.6 L 1.0-4.8 K/uL Monocytes # (Auto) 0.7 0.1-1.0 K/uL Eosinophils # (Auto) 0.11 0.00-0.70 K/uL Basophils # (Auto) 0.02 0.00-0.20 K/uL Absolute Immature Granulocyte (auto 0.02 0-1 K/uL Nucleated Red Blood Cells 0.0 0.0-0.19 % Sodium Level 143 136-145 mmol/L Potassium Level 3.6 3.5-5.1 mmol/L Chloride Level 102 101-111 mmol/L Carbon Dioxide Level 35 H 21-32 mmol/L Blood Urea Nitrogen 25 H 7-18 mg/dL Creatinine 1.9 H 0.5-1.3 mg/dL Glomerular Filtration Rate Calc 36 >90 mL/min Random Glucose 97 70-105 mg/dL Total Calcium 8.9 8.5-10.1 mg/dL Total Bilirubin 1.1 H 0.2-1.0 mg/dL Aspartate Amino Transf (AST/SGOT) 62 H 10-37 U/L Alanine Aminotransferase (ALT/SGPT) 69 12-78 U/L Alkaline Phosphatase 120 50-136 U/L Ammonia < 10 L 11-32 umol/L Troponin I High Sensitivity 41 4-75 ng/L B-Type Natriuretic Peptide 840 H 0-100 pg/mL Total Protein 6.2 6.0-8.3 g/dL Albumin 3.4 L 3.5-5.0 g/dL Urine Color COLORLESS YELLOW Urine Appearance CLOUDY H CLEAR Urine pH 5.5 5.0-8.0 Urine Specific [place] 1.007 1.001-1.031 Urine Protein NEGATIVE NEGATIVE mg/dL Urine Glucose (UA) NEGATIVE NEGATIVE mg/dL Urine Ketones NEGATIVE NEGATIVE mg/dL Urine Occult Blood NEGATIVE NEGATIVE Urine Nitrate NEGATIVE NEGATIVE Urine Bilirubin NEGATIVE NEGATIVE mg/dL Urine Urobilinogen 0.2 0.2-1.0 mg/dL Urine Leukocyte Esterase NEGATIVE NEGATIVE Nany/uL Urine RBC 0-1 0-1 /HPF Urine WBC 0-1 0-1 /HPF Urine Bacteria None None Seen /HPF White Cell Morphology Comment See comments Current Medications Medications (Trade) Dose Ordered Sig/Lacy Route PRN Reason Start Time Stop Time Status Last Admin Dose Admin Acetaminophen (TYLenol 325MG TAB) 650 mg Q4H PRN PO MILD PAIN (1-3) 09/14/25 00:00 10/14/25 00:00 Acetaminophen (TYLenol 325MG TAB) 650 mg Q6H PRN PO TEMPERATURE GREATER THAN 101.5 09/14/25 00:00 10/14/25 00:00 Albuterol (DUOneb) 1 udvial [id number] IH 09/14/25 02:00 10/14/25 01:59 09/14/25 06:45 1 UDVIAL Famotidine (Pepcid 20mg Tab) 20 mg DAILY PO 09/14/25 09:00 10/14/25 08:59 09/14/25 09:16 20 MG Furosemide (LASix 20MG TAB) 20 mg BID@09,17 PO 09/14/25 09:00 10/14/25 08:59 09/14/25 09:15 20 MG Furosemide (LASix 20MG VIAL) 20 mg BID IV 09/14/25 00:00 09/14/25 08:47 DC 09/14/25 01:01 20 MG Nitroglycerin (Nitrostat) 0.4 mg PROTOCOL PRN SL CHEST PAIN 09/14/25 00:00 10/14/25 00:00 Ondansetron HCl (zoFRAN 4MG INJ) 4 mg Q6H PRN IV NAUSEA/VOMITING 09/14/25 00:00 10/14/25 00:00 Potassium Chloride 100 ml @ 100 mls/hr AD PRN IV POTASSIUM PROTOCOL 09/14/25 10:00 10/14/25 09:59 Potassium Chloride (K-Dur/Klor-Con 20meq) 10 meq AD PRN PO POTASSIUM PROTOCOL 09/14/25 10:00 10/14/25 09:59 Potassium Chloride (KCl 10% Elixir 20meq/15ml) 10 meq AD PRN PO POTASSIUM PROTOCOL 09/14/25 10:00 10/14/25 09:59 DIAGNOSTICS / RADIOLOGY: [ ] ASSESSMENT: Acute on chronic decompensated heart failure POA Acute kidney injury on chronic kidney disease POA Uncontrolled hypertension POA Chronic anemia on CKD POA Focal gliosis in the right occipital lobe may correlate with prior ischemic or post inflammatory insult per CT POA Coronary artery disease with cardiac stent x1 and CABG x4 POA Cardiac permanent pacemaker status POA Elevated bilirubin and elevated AST POA History of atrial fibrillation on warfarin POA mild protein calorie malnutrition POA PLAN: admit: medical telemetry Diet: heart healthy digital marketing consultant: service correspondent will follow recommendations. and [employer] Internship continue with Fluid restriction, strict I/O daily weight Diuretics Lasix 20 mg IV b.i.d. Imaging: Echo to eval LV function replace electrolytes as needed per protocol to keep K+ above 4.0 and Mag level above 2 labs in am : cbc, cmp and mag. home medications pending to be reviewed by RN: patient on Coumadin review external medication patient is also on losartan 12.5 mg p.o. daily we will resume for now until rest of medications are reviewed by RN Further orders to follow depending on above results Case discussed with attending physician and came up with above treatment and plan of care. ATTESTATION BY PHYSICIAN I have seen and examined the patient. I reviewed the documentation, medical decision making, and treatment plan as noted by the mid-level provider above. I agree with the findings and plan of care. BAYLEE MEIER MD, [facility] Sep 14, 2025 10:31
[2025-09-14 10:59] LABS: INR 2.79 (0.85-1.15)
--- NOTE | 2025-09-14 11:03 | CONS ---
*--+Cardiology Consult Note* Attending Clean Up Worker: Dr. Dayron Elizabeth Primary Clean Up Worker: Dr. Sade West Consulting Physician: Hospitalist Date of Service: 09/14/2025 Reason for Consult: CHF HPI: This is a 80y/o male with a past medical history of HTN, HLP, prostate CA s/p chemotherapy and radiation, CAD s/p 4V CABG, HFrEF, ICM s/p BiV ICD (Medtronic) implantation, atrial fibrillation, chronic Coumadin therapy, and suspected CVI who presents with FLOR of > 2 weeks in duration. The symptoms began spontaneously and over the ensuing timeframe were constant and progressively worsened. Previously the patient could walk more than 75 yeards before he would develop symptoms, but prior to admission his symptoms would develop after walking less than 50 yards. Associated symptoms include PND, weight gain, and lower extremity swelling. The patient's progression of symptoms prompted him to seek a higher level of care. Cardiology was consulted for treatment recommendations. PMH: Listed above PSH: Listed above FH: Noncontributory SH: Denies alcohol, tobacco, or illicit drug use. Allergies: Coded Allergies: No Known Drug Allergies (Unverified Allergy, Unknown, 01/10/16) Review of systems: General: As per the HPI HEENT: Denies changes in vision, earache or sore throat Neck: Denies pain or stiffness Cardio: As per the HPI Pulm: As per the HPI GI: Denies abdominal pain, nausea, vomiting, diarrhea, or constipation. MSK: Denies decreased ROM or joint pain Heme: Denies anemia, easy bruising, or bleeding. Neuro: Denies headache, dizziness, or syncope. Psyche: Denies anxiety, depression, or suicidal ideation. Physical Exam: Vital Signs Date Time Temp Pulse Resp B/P (MAP) Pulse Ox O2 Delivery O2 Flow Rate FiO2 09/14/25 10:27 74 18 09/14/25 10:25 N/A Room Air 21 09/14/25 02:41 0 09/14/25 02:15 97.3 154/74 95 General: Alert and oriented. NAD HEENT: NC/AT. Oral mucosa is moist. Neck: No masses, JVD, or carotid bruits Lungs: NRD. SCM. B/L CTA. No wheezing, rales or rhonchi. Cardio: Regular rate. Normal S1 and S2. +S4. PMI was not displaced. Abdomen: Soft. NT. ND. Normal active bowel sounds x 4 quadrants. Extremities: Diminished throughout. 1+ nonpitting edema seen in the BLE. Neuro: CN II-XII were grossly intact. No focal deficits. Labs: Laboratory Tests Test 09/13/25 20:07 09/13/25 21:00 09/14/25 05:28 09/14/25 10:29 Range/Units White Blood Count 5.9 5.8 4.8-10.8 K/uL Red Blood Count 4.20 L 4.61 4.50-6.20 MIL/uL Hemoglobin 13.0 L 14.0 14.0-18.0 g/dL Hematocrit 38.6 L 43.9 42-54 % Mean Corpuscular Volume 91.9 95.2 79-99 fL Mean Corpuscular Hemoglobin 31.0 30.4 27.0-33.0 pg Mean Corpuscular Hemoglobin Concent 33.7 31.9 L 32.0-36.0 g/dL Red Cell Distribution Width 16.1 H 16.3 H 11.0-15.5 % Platelet Count 254 266 130-400 K/uL Mean Platelet Volume 8.9 9.0 7.5-10.5 fL Immature Granulocyte % (Auto) 0.5 0.3 0-1 % Neutrophils (%) (Auto) 78.4 H 75.1 40.0-77.0 % Lymphocytes (%) (Auto) 9.1 L 10.8 L 21.0-51.0 % Monocytes (%) (Auto) 10.6 11.6 3.0-13.0 % Eosinophils (%) (Auto) 1.2 1.9 0.0-8.0 % Basophils (%) (Auto) 0.2 0.3 0.0-5.0 % Neutrophils # (Auto) 4.6 4.3 1.8-7.7 K/uL Lymphocytes # (Auto) 0.5 L 0.6 L 1.0-4.8 K/uL Monocytes # (Auto) 0.6 0.7 0.1-1.0 K/uL Eosinophils # (Auto) 0.07 0.11 0.00-0.70 K/uL Basophils # (Auto) 0.01 0.02 0.00-0.20 K/uL Absolute Immature Granulocyte (auto 0.03 0.02 0-1 K/uL Nucleated Red Blood Cells 0.0 0.0 0.0-0.19 % White Cell Morphology Comment See comments Sodium Level 143 143 136-145 mmol/L Potassium Level 4.1 3.6 3.5-5.1 mmol/L Chloride Level 104 102 101-111 mmol/L Carbon Dioxide Level 29 35 H 21-32 mmol/L Blood Urea Nitrogen 25 H 25 H 7-18 mg/dL Creatinine 1.8 H 1.9 H 0.5-1.3 mg/dL Glomerular Filtration Rate Calc 38 36 >90 mL/min Random Glucose 92 97 70-105 mg/dL Total Calcium 9.0 8.9 8.5-10.1 mg/dL Total Bilirubin 1.2 H 1.1 H 0.2-1.0 mg/dL Aspartate Amino Transf (AST/SGOT) 63 H 62 H 10-37 U/L Alanine Aminotransferase (ALT/SGPT) 67 69 12-78 U/L Alkaline Phosphatase 114 120 50-136 U/L Troponin I High Sensitivity 30 41 4-75 ng/L B-Type Natriuretic Peptide 931 H 840 H 0-100 pg/mL Total Protein 5.9 L 6.2 6.0-8.3 g/dL Albumin 3.4 L 3.4 L 3.5-5.0 g/dL Urine Color COLORLESS YELLOW Urine Appearance CLOUDY H CLEAR Urine pH 5.5 5.0-8.0 Urine Specific [place] 1.007 1.001-1.031 Urine Protein NEGATIVE NEGATIVE mg/dL Urine Glucose (UA) NEGATIVE NEGATIVE mg/dL Urine Ketones NEGATIVE NEGATIVE mg/dL Urine Occult Blood NEGATIVE NEGATIVE Urine Nitrate NEGATIVE NEGATIVE Urine Bilirubin NEGATIVE NEGATIVE mg/dL Urine Urobilinogen 0.2 0.2-1.0 mg/dL Urine Leukocyte Esterase NEGATIVE NEGATIVE Nany/uL Urine RBC 0-1 0-1 /HPF Urine WBC 0-1 0-1 /HPF Urine Bacteria None None Seen /HPF Ammonia < 10 L 11-32 umol/L Prothrombin Time 27.5 H 9.6-11.6 SEC Prothromb Time International Ratio 2.79 H 0.85-1.15 Assessment: -Acute on chronic HFrEF -CKD stage III -CAD s/p 4V CABG -ICM s/p BiV ICD (Medtronic) implantation -Atrial fibrillation, on chronic Coumadin therapy -Suspected CVI -HTN -HLP -Prostate CA s/p chemotherapy and radiation Plan: 1. Acute on chronic HFrEF -BNP: 931>840 -In order to optimize the patient's volume status, we will transition the patient from PO to IV furosemide 20 mg BID. He will continue on this regimen in order to target a 2X increase in his BUN, 30% rise in the creatinine, or BNP level less than half of what it was upon admission. -In addition, we will start him on metoprolol succinate 12.5 mg daily and he will continue on losartan 12.5 mg daily. -A 2D echo has been ordered to assess the patient's systolic/diastolic dysfunction. -Please record strict I/O's, daily weights, and restrict fluids to less than 2/0L/day 2. CAD s/p 4V CABG -Continue aspirin 81 mg daily, metoprolol succinate 12.5 mg daily, and olga rvastatin 20 mg QHS. 3. Atrial fibrillation, chronic Coumadin therapy -Continue metoprolol succinate 12.5 mg daily and Coumadin therapy in order to maintain an INR goal of 2.0-3.0 -Please keep the patient on continuous telemetry monitoring and maintain el ectrolytes within normal parameters. Thank you for this interesting consult and allowing us to participate in the care of your patient. This case was discussed with my Supervising Physician, Dr. Dayron Elizabeth, and the above mentioned plan was formulated and agreed upon. -Consult Note written by Lora Rios, MSN, SLUMBER ROOM ATTENDANT, AGACNP-BC LORA RIOS Sep 14, 2025 11:03
[2025-09-14] MEDS: PoTASSium chloRIDE 20MEQ ER 20 MEQ ERTAB PO PRN (12:26)
[2025-09-14 16:39] LABS: CREATININE 1.8 mg/dL (0.5-1.3); GLOMERULAR FILTR. RATE CALC 38.0 mL/min (>90); GLUCOSE,RANDOM 104.0 mg/dL (70-105); SODIUM SERUM 143.0 mmol/L (136-145); UREA NITROGEN, BLOOD 23.0 mg/dL (7-18)
--- NOTE | 2025-09-14 20:11 | CONS ---
REFERRING PHYSICIAN: Dr. De La Torre. REASON FOR CONSULTATION: Renal failure. HISTORY OF PRESENT ILLNESS: A 80-year-old male with a previous history of prostate cancer, patient with a history of hypertension as well as coronary artery disease. The patient presented to the hospital with failure to thrive. The patient had been having generalized weakness and confusion. The patient is also complaining of lower extremity edema. The patient apparently had not been taking his diuretics as prescribed. In the Emergency Room, the patient was found to have anasarca, started on diuretics. The patient's laboratory values reveal an elevated BUN and creatinine, and he is being seen in consultation for all of the above. PAST MEDICAL HISTORY: Hypertension, coronary artery disease, hypercholesterolemia, prostate cancer. PAST SURGICAL HISTORY: CABG. SOCIAL HISTORY: He lives independently. There is no tobacco use. FAMILY HISTORY: No renal disease in the family. ALLERGIES: There are no allergies. MEDICATIONS: Noted. REVIEW OF SYSTEMS: GENERAL: He is feeling weak and tired. HEENT: No change in vision. No change in hearing. No nasal discharge. No sore throat. CARDIOVASCULAR: There is no current chest pain or palpitations. PULMONARY: He does complain of shortness of breath. GASTROINTESTINAL: He is tolerating a diet. MUSCULOSKELETAL: Complains of weakness. NEUROLOGIC: No history of seizures or focal deficits. PSYCHIATRIC: No history of hallucinations or psychosis. ENDOCRINE: No thyroid disease. HEME: History of prostate cancer. PHYSICAL EXAMINATION: VITAL SIGNS: Blood pressure 154/74, pulse 60, he is afebrile. GENERAL: Chronically ill male, elderly, laying in bed on the medical floor. HEENT: Head is atraumatic. Pupils are equal, round, and reactive to light. Oropharynx is without exudate. Nares clear. NECK: There is no JVP. There is no thyromegaly. No mass. CARDIOVASCULAR: Regular. There is no S3 or S4 gallop. LUNGS: Coarse with equal thoracic movement. ABDOMEN: Soft, nondistended, nontender. EXTREMITIES: Minimal edema. NEUROLOGICAL: He is awake. He is alert. He is oriented. SKIN: No rashes. No nodules. BACK: There is no CVA tenderness. No back deformities. LABORATORY DATA: Sodium 143, potassium 3.6, BUN 25, creatinine 1.8, bicarbonate 35. Hemoglobin 14, hematocrit 43. Urinalysis is noted. IMPRESSION: * [id number] renal failure. * Known cardiomyopathy. * Hypertension. * Electrolyte abnormalities. * History of prostate cancer. PLAN: The patient presents with underlying renal dysfunction. Creatinine is noted. We will obtain a renal ultrasound for completeness. The patient's urine output has been excellent. We will switch the Lasix to 20 mg p.o. b.i.d. and we will continue to monitor closely. All labs can be repeated in the morning. The patient and family at the bedside. Multiple questions were answered. TID: [id number] RECEIPT: [id number]
--- NOTE | 2025-09-15 00:42 | HMCSR ---
APPROVED REPORT EXAM: Two-dimensional and M-mode echocardiogram with Doppler and color Doppler. INDICATION ICD: Shortness of breath R06.02 2D Dimensions RVDd4.6 cmLVEF(%)42.7 (>50%)LVED Vol(simp.)235.0 mL IVSd1.2 (0.7-1.1cm)FS(%)22 %LVES Vol(simp.)178.0 mL LVDd6.3 (3.8-5.6cm)LA (2D)5.1 (1.6-4.0cm)LVEF(%, simp.)24 % PWd1.0 (0.7-1.1cm)Ao Root(2D)3.2 (2.0-3.7cm)LA ESV INDEX (BP)59.16 mL/m2 IVSs1.3 cmLVOT diam2.3 (1.8-2.4cm) LVDs5.0 (2.5-4.0cm)IVC diam2.3 cm PWs1.5 cm Deformation Strain Apical 4-5.6 % Apical 2-4.3 % Apical 3-7.3 % Global Strain-5.8 % M-Mode Dimensions EPSS1.9 cm LA (MM)5.3 (1.6-4.0cm) Ao Root(MM)3.5 (2.0-3.7cm) Mitral Valve MV E Lisa480.3 cm/sDECEL Edwm689 ms MV A Vmax21.2 cm/sP 1/2 T57 ms E/A ratio5.4MVA (PHT)3.9 cm2 TDI E/E' Ydrlne37.4E/E' Bpkxvrv11.0 Medial E' Peak V3.89 cm/sLateral E' Peak V3.46 cm/s Pulmonary Valve PV Vmax0.6 m/s PV Peak GR1.4 mmHg Tricuspid Valve RAP (EST) 8 mmHgRVSP8.0 mmHg Left Ventricle The left ventricle is dilated, LVIDd 6.3cm. There is paradoxical septal wall motion noted, otherwise there is severe global hypokinesis of the left ventricle. Mild eccentric left ventricular hypertrophy . Left ventricle systolic function is severely depressed, estimated LVEF 20 to 25%. Stage III diastol ic dysfunction. Right Ventricle The right ventricle is dilated. Right ventricle systolic function is moderately depressed, TAPSE 12 m m. Device lead is present in the right ventricle. Atria The left atrium is severely dilated. LASVI 59mL/m2 The right atrium is dilated. Aortic Valve Aortic valve is trileaflet. The leaflets are mildly thickened and calcified. Trace aortic regurgitati on. There is no aortic valvular stenosis, AoV valve opens well. Mitral Valve The mitral valve is normal in structure. The leaflets are mildly thickened and calcified. Mild-modera te mitral regurgitation. There is no mitral valve stenosis. Tricuspid Valve The tricuspid valve is normal in structure. Trace tricuspid regurgitation. RVSP is normal. Pulmonic Valve Pulmonic valve is not well visualized. Great Vessels The aortic root is normal in size. IVC is dilated and collapses <50% with inspiration. Pericardium There is no pericardial effusion. Other Information Quality : Adequate Conclusion The left atrium is severely dilated. LASVI 59mL/m2 The right atrium is dilated. The right ventricle is dilated. The left ventricle is dilated, LVIDd 6.3cm. Mild eccentric left ventricular hypertrophy. There is paradoxical septal wall motion noted, otherwise there is severe global hypokinesis of the le ft ventricle. Left ventricle systolic function is severely depressed, estimated LVEF 20 to 25%. Stage III diastolic dysfunction. Right ventricle systolic function is moderately depressed, TAPSE 12 mm. Trace aortic regurgitation. Mild-moderate mitral regurgitation. Trace tricuspid regurgitation. PASP is normal. There is no pericardial effusion.
[2025-09-15 01:24] VITALS: PULSE 65; RESP 18; O2SAT 98
[2025-09-15 04:00] VITALS: BP 136/68; PULSE 63; RESP 18; TEMP 97.4
[2025-09-15 04:23] LABS: IMMATURE GRANULOCYTE ABSOLUTE 0.03 K/uL (0-1); NUCLEATED RED BLOOD CELLS 0.0 % (0.0-0.19); PLATELET COUNT (AUTO) 251 K/uL (130-400); RED BLOOD CELL COUNT(AUTO) 4.28 MIL/uL (4.50-6.20); RED CELL DISTRIBUTION WIDTH 16.5 % (11.0-15.5); WHITE BLOOD COUNT (AUTO) 6.7 K/uL (4.8-10.8)
[2025-09-15 04:44] LABS: INR 2.49 (0.85-1.15)
[2025-09-15 04:45] LABS: ASPARTATE AMINOTRANSFERASE 49.0 U/L (10-37); CREATININE 1.7 mg/dL (0.5-1.3); GLOMERULAR FILTR. RATE CALC 41.0 mL/min (>90); GLUCOSE,RANDOM 94.0 mg/dL (70-105); SODIUM SERUM 145.0 mmol/L (136-145); TOTAL PROTEIN, SERUM 5.6 g/dL (6.0-8.3); UREA NITROGEN, BLOOD 19.0 mg/dL (7-18)
[2025-09-15] MEDS ORDERED: ROSU20TA98 PO (05:34)
[2025-09-15] MEDS ORDERED: NITR0.4T50 SL (05:34)
[2025-09-15] MEDS ORDERED: METO-391 PO (05:34)
[2025-09-15] MEDS ORDERED: LEVO88TA7 PO (05:34)
[2025-09-15] MEDS ORDERED: WARF-57 PO (05:34)
[2025-09-15] MEDS ORDERED: MECL-302 PO (05:34)
[2025-09-15] MEDS ORDERED: LOSA25TA41 PO (05:34)
[2025-09-15] MEDS ORDERED: FINA1TAB13 PO (05:34)
[2025-09-15 07:23] VITALS: PULSE 60; RESP 18; O2SAT 96
--- NOTE | 2025-09-15 07:36 | HMCIMG ---
EXAMINATION: ULTRASOUND OF THE RETROPERITONEUM. CLINICAL HISTORY: Renal failure. COMPARISON: None. TECHNIQUE: Real-time grayscale ultrasound images of the kidneys. FINDINGS: The kidneys are normal in caliber, the right kidney measures 9.7 x 4.7 x 4.4 cm and the left kidney measures 10.7 x 4.5 x 5.2 cm in its craniocaudal, AP, and transverse dimensions respectively. There is normal renal cortical thickness, and cortical echogenicity. There is no renal calculus or hydronephrosis. The urinary bladder is normal in caliber and wall thickness (0.32 cm). There are no calculi in the urinary bladder. Incidentally, there is large free fluid in the bilateral pleural cavities. IMPRESSION: No significant abnormality in the retroperitoneum. Incidentally noted, large bilateral pleural effusions. /[place]
[2025-09-15 08:00] VITALS: BP 144/77; PULSE 60; RESP 20; TEMP 97.7; O2SAT 93
[2025-09-15] MEDS ORDERED: PoTASSium chloRIDE 10MEQ SR 10 MEQ/TAB TAB.SR.24H PO PRN (08:00)
[2025-09-15] MEDS: WARFARIN SODIUM 5 MG TAB PO SCH (08:32)
[2025-09-15 10:50] VITALS: PULSE 61; RESP 18
--- NOTE | 2025-09-15 11:15 | PN ---
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 * Chronic kidney disease, stage 3. * Ischemic cardiomyopathy with advanced LV dysfunction. * Status post remote AICD biventricular implant, [employer]. * Severe coronary artery disease, status post remote coronary artery bypass graft surgery x 4. * Permanent atrial fibrillation, on chronic Coumadin therapy. * Hypertension. * Hyperlipoproteinemia. * Prostate CA, status post chemotherapy and radiation therapy. * Dementia and altered mental status as an outpatient and during this hospitalization. * Hypothyroidism, on supplement. This patient was hospitalized because of congestive heart failure and volume overload, which I feel is multifactorial in its etiology. To begin with, the patient has history of advanced LV dysfunction with an ischemic cardiomyopathy and CHF in the past. He has chronic atrial fibrillation and has had remote AV fitz ablation and biventricular AICD implant. He has chronic kidney disease at stage 3. Those are clearly contributing factors. Moreover, the patient has not been taking his furosemide for questionable reasons. On assessing the patient this morning, he states that he feels okay; however, it is evident that he still has some confusion and altered mental status intermittently. This has been a chronic process for him that has been noted as an outpatient. Even the patient himself had noted significant memory loss and history of inability to recall events. We had discussed that with him as an outpatient and had recommended neurocognitive evaluation, which he was going to discuss with his primary care team. The patient is currently comfortable and in no apparent distress. He is lying flat. His vital signs are stable. Heart rate is in the 60s. Blood pressure is 135 systolic range. He is saturating at 94% to 95% on room air. The patient has no jugular venous distention. His lungs are essentially clear. The cardiac exam is remarkable for a soft apical systolic murmur. The patient has a soft, benign abdomen. Extremities are remarkable for trace edema. Laboratory studies this morning revealed a sodium of 145; potassium of 3.1, which is being managed per protocol; chloride is 105; CO2 is 34; BUN is 19; creatinine is 1.7, down from 1.9 yesterday. GFR is 41, up from 36 yesterday. The magnesium is 1.9. The patient's AST is slightly elevated at 49, down from 62 yesterday. The other liver enzymes are normal. The patient's albumin is low at 3.1, consistent with protein malnutrition. White count is 6.7 with an H and H of 13.1 and 39.2 respectively. The platelet count is currently 251,000. Today, I have had a detailed discussion with the patient and his son who is in attendance. We had reviewed the fact that he has to be compliant with all the medications. A list of medications provided to him. He is currently not on VERONIKA or ARB therapy given his renal dysfunction, but that will be considered as an outpatient. The patient will be started back on furosemide and his other usual medications. I have recommended that we obtain a CBC, CMP, magnesium, and BNP on Saturday of early next week at [facility] [place]. We would like to thank you for allowing us to participate in this patient's care. TID: [id number] RECEIPT: [id number]
[2025-09-15] MEDS ORDERED: FURO40TA7 PO (11:26)
[2025-09-15] MEDS ORDERED: LOSA-417 PO (11:31)
[2025-09-15] MEDS ORDERED: ATOR40TA69 PO (11:31)
[2025-09-15] MEDS ORDERED: METO50TA9 PO (11:31)
--- NOTE | 2025-09-15 11:31 | DS ---
Discharge Summary Hospital Course Summary: Mr. Serrano, a 80-year-old male with a complex cardiac history, presented with a 2-day history of worsening shortness of breath, generalized weakness, increased confusion, and bilateral lower extremity edema. He had not been taking his diuretics as prescribed. On admission, he was found to be in acute on chronic decompensated heart failure with evidence of volume overload, acute kidney injury on CKD, and mild hepatic dysfunction. Initial labs revealed elevated BUN/creatinine, low GFR, elevated BNP, mild transaminitis, and hypoalbuminemia. Imaging showed mild cardiomegaly, small pleural effusions, and chronic cerebral atrophy with focal gliosis. He was managed with IV diuretics, transitioned to oral furosemide as renal function improved, and placed on fluid and sodium restriction. Electrolytes were closely monitored and replaced as needed. Cardiology recommended optimization of heart failure therapy, including initiation of metoprolol succinate and continuation of losartan and statin therapy. Anticoagulation with warfarin was continued for atrial fibrillation. Nephrology recommended close monitoring of renal function and adjustment of diuretic therapy. The patients confusion improved with diuresis and correction of metabolic derangements, though baseline cognitive impairment persisted. Throughout hospitalization, the patient remained hemodynamically stable, with gradual improvement in symptoms and laboratory parameters. He and his family were counseled extensively on medication compliance, dietary restrictions, and the importance of close outpatient follow-up. DISCHARGE CONDITION: Alert and oriented to person, place, and time, with baseline mild cognitive impairment. Ambulating with assistance. Vitals stable; euvolemic. Tolerating heart-healthy diet. No acute distress. [employer] Supervisor(s): [facility] Dr Santhosh Guevara- Nephro Assessment/Plan: Discharge Diagnoses: Primary Diagnosis: Acute on chronic decompensated heart failure (HFrEF) Secondary Diagnoses: Chronic kidney disease, stage 3 Ischemic cardiomyopathy with advanced LV dysfunction Status post remote AICD biventricular implant ([employer]) Severe coronary artery disease, s/p CABG x4 and cardiac stent x1 Permanent atrial fibrillation, on chronic Coumadin therapy Hypertension Hyperlipidemia Prostate cancer, s/p chemotherapy and radiation Hypothyroidism Mild protein-calorie malnutrition Dementia/altered mental status Admitting Diagnoses: Acute on chronic decompensated heart failure POA Acute kidney injury on chronic kidney disease POA Uncontrolled hypertension POA Chronic anemia on CKD POA Focal gliosis in the right occipital lobe may correlate with prior ischemic or post inflammatory insult per CT POA Coronary artery disease with cardiac stent x1 and CABG x4 POA Cardiac permanent pacemaker status POA Elevated bilirubin and elevated AST POA History of atrial fibrillation on warfarin POA mild protein calorie malnutrition POA Discharge Instructions: DISCHARGE INSTRUCTIONS: Diet: Heart-healthy, low sodium, fluid restriction to 1.5 L/day. Activity: Ambulate as tolerated; avoid strenuous activity until cleared by cardiology. Weight: Daily weights at home; report weight gain >2 lbs in 24 hours or >5 lbs in a week. Medications: Take all medications as prescribed. Do not skip diuretics. Follow-up Appointments: Cardiology: [Insert Date/Time], [facility] [place] Nephrology: [Insert Date/Time] Primary Care: [Insert Date/Time] Labs: CBC, CMP, magnesium, and BNP to be drawn prior to next cardiology visit. When to Seek Medical Attention: Worsening shortness of breath, chest pain, palpitations, syncope, confusion, decreased urine output, or significant weight gain. Home Medications: Reported Medications Rosuvastatin Calcium (Rosuvastatin Calcium) 20 Mg Tablet, 1 TAB PO HS 09/15/25 Losartan Potassium (Losartan Potassium) 25 Mg Tablet, 0.5 TAB PO DAILY 09/15/25 Levothyroxine Sodium (Levothyroxine Sodium) 88 Mcg Tablet, 1 TAB PO DAILY 09/15/25 Nitroglycerin (Nitroglycerin) 0.4 Mg Tab.subl, 1 TAB SL AD PRN for CHEST PAIN 09/15/25 Meclizine HCl (Meclizine HCl) 25 Mg Tablet, 1 TAB PO BID PRN for vertigo 09/15/25 Warfarin Sodium (Warfarin Sodium) 5 Mg Tablet, 1 TAB PO DAILY 09/15/25 Finasteride (Finasteride) 1 Mg Tablet, 1 TAB PO DAILY 09/15/25 Metoprolol Succinate (Metoprolol Succinate) 50 Mg Tab.er.24h, 1 TAB PO BID 09/15/25 New Medications: Atorvastatin Calcium (Lipitor) 40 Mg Tablet 40 MG PO HS, #30 TAB Furosemide (Lasix 40Mg Tab) 40 Mg Tablet 40 MG PO DAILY, #30 TAB Losartan Potassium (Cozaar) 25 Mg Tablet 25 MG PO DAILY, #30 TAB Metoprolol Succinate (Toprol Xl) 50 Mg Tab.er.24h 50 MG PO BID, #60 TAB Continued Medications: Finasteride (Finasteride) 1 Mg Tablet 1 TAB PO DAILY Levothyroxine Sodium (Levothyroxine Sodium) 88 Mcg Tablet 1 TAB PO DAILY Meclizine HCl (Meclizine HCl) 25 Mg Tablet 1 TAB PO BID PRN for vertigo Nitroglycerin (Nitroglycerin) 0.4 Mg Tab.subl 1 TAB SL AD PRN for CHEST PAIN Warfarin Sodium (Warfarin Sodium) 5 Mg Tablet 1 TAB PO DAILY Discontinued Medications: Losartan Potassium (Losartan Potassium) 25 Mg Tablet 0.5 TAB PO DAILY Metoprolol Succinate (Metoprolol Succinate) 50 Mg Tab.er.24h 1 TAB PO BID Rosuvastatin Calcium (Rosuvastatin Calcium) 20 Mg Tablet 1 TAB PO HS Time spent arranging discharge: 31-60 minutes ATTESTATION BY PHYSICIAN I have seen and examined the patient. I reviewed the documentation, medical decision making, and treatment plan as noted by the mid-level provider above. I agree with the findings and plan of care. BAYLEE MEIER MD, JANICE B AGACNP Sep 15, 2025 11:31
--- NOTE | 2025-09-15 12:40 | NUR ---
PATIENT DISCHARGED HOME ID BAND,IV AND TELE BABAR REMOVED. DISCHARGE INSTRUCTIONS EXPLAINED AND GIVEN TO PATIENT. PATIENT VERBALIZED UNDERSTANDING. BELONGINGS PACKED AND TAKEN BY PATIENT. WHEELED DOWN TO PRIVATE CAR.
--- NOTE | 2025-09-15 13:23 | NUR ---
Pt d/c before RD could assess. Addendum: 09/15/25 at [address] Amended: Links added.
--- NOTE | 2025-09-15 20:15 | PN ---
FOLLOWUP PROGRESS NOTE SUBJECTIVE: A 80-year-old male with a history of known cardiomyopathy, initially presented to the hospital with volume overload. The patient had been noncompliant with his outpatient diuretics. The patient was resumed on the diuretics in the hospital and his pulmonary symptoms have greatly improved. The patient's weight declined by over 5 kilos in the hospital and the patient is feeling much improved. He has had acute on chronic renal failure in the hospital. Creatinine has been elevated and the patient is being seen as a followup visit for all of the above. REVIEW OF SYSTEMS: CONSTITUTIONAL: He is feeling much improved. HEENT: No change in vision. No change in hearing. CARDIOVASCULAR: There is no current chest pain or palpitations. PULMONARY: Described above. GASTROINTESTINAL: He is tolerating a diet. MUSCULOSKELETAL: Complaint of weakness. PHYSICAL EXAMINATION: VITAL SIGNS: Blood pressure is 136/68, pulse 60. He is afebrile. GENERAL: He is a chronically ill male, lying in bed on the medical floor. HEENT: Head is atraumatic. Pupils are equal, round and reactive to light. Oropharynx is without exudate. Nares clear. NECK: There is no JVP. There is no thyromegaly, no mass. CARDIOVASCULAR: Regular. There is no S3 or S4 gallop. LUNGS: Coarse with equal thoracic movement. ABDOMEN: Soft, nondistended, nontender. EXTREMITIES: Reveal no clubbing or cyanosis. NEUROLOGICAL: He is awake. He is alert. LABORATORY DATA: Sodium 145, potassium is 3, BUN 19, creatinine is 1.7, hemoglobin 13, hematocrit 39. IMPRESSION: Acute on chronic renal failure. Cardiomyopathy. Hypertension. Electrolyte abnormalities. PLAN: The patient's pulmonary symptoms are much improved. The patient is now on oral diuretics. The patient's electrolytes have all been aggressively repleted. The patient can safely be discharged from a renal standpoint. Once the patient is discharged, the patient can follow up in the [facility]. TID: [id number] RECEIPT: [id number]
== END 2025-09-15 12:35 | disposition home or self-care (01) | DRG 291 ==
LOC: EDH 19:38 → EDHIP 23:52 → 3AH 09-14 01:59
PROVIDERS: ADMIT Internal Medicine; ATTEND Internal Medicine
DX: I13.0 Hypertensive heart and chronic kidney disease with heart failure and stage 1 through stage 4 chronic kidney disease, or unspecified chronic kidney disease (principal); I50.43 Acute on chronic combined systolic (congestive) and diastolic (congestive) heart failure; E44.1 Mild protein-calorie malnutrition; N17.9 Acute kidney failure, unspecified; J98.11 Atelectasis; I48.21 Permanent atrial fibrillation; D63.1 Anemia in chronic kidney disease; E03.9 Hypothyroidism, unspecified; I25.5 Ischemic cardiomyopathy; E78.00 Pure hypercholesterolemia, unspecified; E88.09 Other disorders of plasma-protein metabolism, not elsewhere classified; F03.90 Unspecified dementia, unspecified severity, without behavioral disturbance, psychotic disturbance, mood disturbance, and anxiety; I25.10 Atherosclerotic heart disease of native coronary artery without angina pectoris; K76.89 Other specified diseases of liver; N18.30 Chronic kidney disease, stage 3 unspecified; R62.7 Adult failure to thrive; Z79.01 Long term (current) use of anticoagulants; Z82.0 Family history of epilepsy and other diseases of the nervous system; Z82.49 Family history of ischemic heart disease and other diseases of the circulatory system; Z82.5 Family history of asthma and other chronic lower respiratory diseases; Z85.46 Personal history of malignant neoplasm of prostate; Z85.51 Personal history of malignant neoplasm of bladder; Z91.148 Patient's other noncompliance with medication regimen for other reason; Z92.21 Personal history of antineoplastic chemotherapy; Z92.3 Personal history of irradiation; Z95.0 Presence of cardiac pacemaker; Z95.1 Presence of aortocoronary bypass graft; Z95.5 Presence of coronary angioplasty implant and graft; Z68.23 Body mass index [BMI] 23.0-23.9, adult; Z79.899 Other long term (current) drug therapy
CPT/HCPCS: 36415; 70450; 71045; 76376; 76770; 80048; 80053; 81001; 82140; 82948; 83735; 83880; 84484; 85025; 85610; 93005; 93306; 93356; 94640; 94664; 96374; 99285; G0378; J1938; J3490